=== PATIENT | male | born 1955 | race Hispanic/Latino ===

== ENCOUNTER 2020-04-19 12:44 | Emergency (ER) | payer OTHER ==
--- NOTE | 2020-04-19 14:29 | CT ---
CT LUMBAR SPINE 04/19/20 PROVIDED CLINICAL HISTORY: Fell backwards onto back and back of head, pain in lower tailbone area. FINDINGS: Lumbar alignment appears normal. Vertebral body heights appear preserved. There is no evidence for f racture. The caudal aspects of the sacrum and coccyx are not included on this imaging volume. Multile rissa lumbar degenerative changes are seen. There is no CT evidence for high grade central canal stenos is. Areas of chronic moderate/severe foraminal narrowing are seen at multiple levels on the basis of degenerative change. The visualized extraspinal soft tissues demonstrate no significant abnormality. IMPRESSION: 1. No evidence for fracture with limitations as described. 2. Lumbar spine degenerative changes without evidence for high grade central canal stenosis by C T. POS: ZULLY
[2020-04-19 14:49] LABS: Bilirubin Negative (Negative); Blood, Urine Negative (Negative); Clarity Clear (Clear); Glucose, Urine (Dipstick) Normal (Negative); Ketone, Urine Negative (Negative); Leukocyte Negative Leu/uL (Negative); Nitrite Negative (Negative); Protein, Urine (Dipstick) Negative (Neg-Trace); Specific Gravity, Urine 1.021 (1.002-1.036); Urobilinogen Normal mg/dL (Less than 2); pH, Urine 6.5 (5.0-9.0)
--- NOTE | 2020-04-19 16:54 | MRI ---
MRI OF THE LUMBAR SPINE 04/19/20 PROVIDED CLINICAL HISTORY: Back pain. FINDINGS: Lumbar alignment appears normal. Vertebral body heights appear preserved. There is partially visualiz ed marrow edema involving the caudal aspects of the visualized sacrum. Multilevel lumbar disc and fac et degenerative changes are seen. There is no evidence for significant central canal stenosis. There is moderate left and severe right foraminal narrowing at L5-S1 on the basis of disc bulge and facet a rthritis. There is a right subarticular disc herniation at L3-4 producing potential for mass effect u mindi the traversing right L4 nerve root. There is severe foraminal narrowing right of midline at L4-5 on the basis of disc bulge and facet arthritis. IMPRESSION: 1. Lumbar degenerative changes, producing subarticular and foraminal narrowing as described. 2. Partially visualized marrow edema involving the caudal sacrum, correlate for trauma in this r egion and consider dedicated sacral imaging as indicated. POS: ZULLY
[2020-04-19] MEDS ORDERED: Ketorolac Tromethamine 30 MG/ML VIAL ONE (17:41)
== END 2020-04-19 18:00 | disposition home or self-care (01) ==
LOC: ERS 12:44
DX: M54.5 Low back pain (principal); W17.89XA Other fall from one level to another, initial encounter
CPT/HCPCS: 72131; 72148; 81003; 96372; J1885